=== PATIENT | male | born 1950 | race Caucasian/White ===

== ENCOUNTER 2017-02-06 11:11 | Outpatient (CLI) | payer OTHER | END 2017-02-06 11:12 | disposition home or self-care (01) | DX: E78.5 Hyperlipidemia, unspecified (principal); Z12.5 Encounter for screening for malignant neoplasm of prostate ==

== ENCOUNTER 2017-03-05 15:39 | Outpatient (CLI) | payer MEDICARE, OTHER | END 2017-03-05 15:40 | disposition home or self-care (01) | DX: G47.33 Obstructive sleep apnea (adult) (pediatric) (principal) | CPT/HCPCS: 99214; G0463 ==

== ENCOUNTER 2018-06-09 15:41 | Outpatient (CLI) | payer MEDICARE, OTHER | END 2018-06-09 15:42 | disposition home or self-care (01) | LOC: SC 15:41 | PROVIDERS: ATTEND Nurse Practitioner Family | DX: G47.33 Obstructive sleep apnea (adult) (pediatric) (principal) | CPT/HCPCS: 99213; G0463; 99212 ==

== ENCOUNTER 2018-08-26 07:21 | Outpatient (CLI) | payer MEDICARE, OTHER ==
[2018-08-26 13:20] LABS: BASOPHILS % (AUTO) 0.4 %; EOSINOPHILS # (AUTO) 0.3 10^3/uL (0.0-0.7); EOSINOPHILS % (AUTO) 5.8 %; HGB - HEMOGLOBIN 14.2 g/dL (14.0-18.0); LYMPHOCYTES # (AUTO) 1.8 10^3/uL (1.5-3.5); LYMPHOCYTES % (AUTO) 37.3 %; MEAN CORPUSCULAR HEMOGLOBIN 33.7 pg (27.0-31.0); MEAN CORPUSCULAR HGB CONC 34.9 g/dL (32.0-36.0); MEAN CORPUSCULAR VOLUME 96.5 fL (80.0-94.0); MEAN PLATELET VOLUME 8.2 fL (7.4-11.4); MONOCYTES # (AUTO) 0.5 10^3/uL (0.0-1.0); MONOCYTES % (AUTO) 10.4 %; NEUTROPHILS # (AUTO) 2.2 10^3/uL (1.5-6.6); NEUTROPHILS % (AUTO) 46.1 %; PLT - PLATELET COUNT 261 10^3/uL (130-450); RED BLOOD COUNT 4.22 10^6/uL (4.70-6.10); RED CELL DISTRIBUTION WIDTH 12.6 % (12.0-15.0); WHITE BLOOD COUNT 4.8 x10^3/uL (4.8-10.8)
[2018-08-26 13:33] LABS: ALBUMIN/GLOBULIN RATIO 1.3 (1.0-2.2); ALKALINE PHOSPHATASE 105 IU/L (42-121); ALT ALANINE AMINOTRANSFERASE 24 IU/L (10-60); AST ASPARTATE AMINOTRANSFERASE 23 IU/L (10-42); BILIRUBIN,TOTAL 1.2 mg/dL (0.2-1.0); BUN - BLOOD UREA NITROGEN 16 mg/dL (6-20); CALCIUM 9.3 mg/dL (8.5-10.3); CARBON DIOXIDE - CO2 29 mmol/L (21-32); CHLORIDE 100 mmol/L (101-111); CHOL/HDL RATIO 3.9 (<5.0); CHOLESTEROL 206 mg/dL; CREATININE 1.1 mg/dL (0.6-1.2); GFR - MDRD 67 (>89); GLUCOSE 176 mg/dL (70-100); HDL CHOLESTEROL 53 mg/dL; LDL CHOLESTEROL,CALCULATED 130 mg/dL; LDL/HDL RATIO 2.5 (<3.6); SODIUM 137 mmol/L (135-145); VLDL CHOLESTEROL 23 mg/dL
[2018-08-26 13:45] LABS: HEMOGLOBIN A1C 0.74 g/dL; HEMOGLOBIN A1C % 6.7 % (4.6-6.2)
== END 2018-08-26 07:22 | disposition home or self-care (01) ==
LOC: LAB.WCP 07:21
PROVIDERS: ATTEND Physician Assistant Medical
DX: E78.5 Hyperlipidemia, unspecified (principal); E11.9 Type 2 diabetes mellitus without complications; Z12.5 Encounter for screening for malignant neoplasm of prostate; L40.9 Psoriasis, unspecified
CPT/HCPCS: 36415; 80053; 80061; 83036; 85025; G0103; 83721; 84153

== ENCOUNTER 2019-04-22 07:43 | Outpatient (CLI) | payer MEDICARE, OTHER ==
[2019-04-22 13:40] LABS: ALBUMIN 4.1 g/dL (3.2-5.5); ALBUMIN/GLOBULIN RATIO 1.5 (1.0-2.2); BILIRUBIN,TOTAL 0.8 mg/dL (0.2-1.0); CALCIUM 9.3 mg/dL (8.5-10.3); CREATININE 0.9 mg/dL (0.6-1.2); TOTAL PROTEIN 6.9 g/dL (6.7-8.2)
[2019-04-22 14:30] LABS: HB2 TOTAL 15.6 g/dL; HEMOGLOBIN A1C 0.73 g/dL; HEMOGLOBIN A1C % 6.4 % (4.6-6.2)
== END 2019-04-22 07:44 | disposition home or self-care (01) ==
LOC: LAB.WCP 07:43
PROVIDERS: ATTEND Family Medicine
DX: Z00.00 Encounter for general adult medical examination without abnormal findings (principal); E78.5 Hyperlipidemia, unspecified; E11.9 Type 2 diabetes mellitus without complications; D12.6 Benign neoplasm of colon, unspecified
CPT/HCPCS: 36415; 80053; 82043; 83036

== ENCOUNTER 2019-06-14 15:58 | Outpatient (CLI) | payer MEDICARE, OTHER | END 2019-06-14 15:59 | disposition home or self-care (01) | LOC: SC 15:58 | PROVIDERS: ATTEND Nurse Practitioner Family | DX: G47.33 Obstructive sleep apnea (adult) (pediatric) (principal) | CPT/HCPCS: 99214; G0463; 99212 ==

== ENCOUNTER 2021-04-20 08:04 | Outpatient (CLI) | payer MEDICARE, OTHER ==
--- NOTE | 2021-04-20 08:29 | SLEEP CARE CONSULTATION ---
Information from patient questionnaire entered by Kelly Bojorquez. I have reviewed and concur with the information entered by Kelly Bojorquez. This document represents the service I personally performed and the decisions made by , Patricia Beauchamp ARNP. History of Present Illness Service Date and Time: 04/20/2021 0804 Previous diagnosis: Moderate, Obstructive Sleep Apnea-Hypopnea Syndrome AHI: 26.8 (in 2013) Reason for follow up: annual (last seen 05/2019) Equipment type: CPAP Equipment obtained from: [employer] (getting supplies as needed) Mask style: Full face Backup mask available: Yes (old mask) Last cushion change: 1 month Prior sleep studies: Yes Year and Where: 2013 - [facility] HPI additional information: GINGER ALCANTAR was diagnosed to have moderate, AHI 26.8, obstructive sleep apnea- hypopnea syndrome and returned today for CPAP therapy annual follow-up. CPAP Compliance Data - Data Reviewed with Patient Average duration of nightly device use: 8 hr 9 min Compliance rate %: 93.9 (180 days) Current pressure setting (cmH2O): 6-8 Humidity settin Heated hose settin Average residual AHI: 2.3 Central apnea: 0.0 Obstructive apnea: 0.3 Hypopnea: 2.0 Average large leak: 36 sec Subjective Patient concerns: denies: aerophagia, mask discomfort, air blowing in eyes, mask leak noise, condensation in mask/hose, nasal congestion, dry mouth, nose, throat, epistaxis, other Observed to snore while using device: No Current pressure setting perceived as: comfortable On therapy, patient: reports: sleeping better, awakening more refreshed, being more awake and alert during the day, more rested overall. denies: drowsiness while driving Initial [place] Sleepiness Scale score: 3 (in 2013) Current [place] Sleepiness Scale score: 1 Allergies and Home Medications Home medication list reviewed: Yes (Metformin, atorvastatin) Review of Systems Review of systems same as previous: Yes (no changes) Physical Exam Heart Rate: 52 O2 Saturation: 97 Height: 5 ft 10 in Weight: 221 lb Body Mass Index: 31.7 BMI Classification: Obese Impression and Plan 1. Obstructive Sleep Apnea-Hypopnea Syndrome, moderate, with good treatment compliance and good apnea control. On CPAP therapy, the patient has better sleep quality and is more rested overall. He states he is committed to using his CPAP. He has significant improvement of his apnea and is satisfied with his treatment. He has not concerns or issues today. He was encouraged to try to lose weight. I will have him follow up next year. Patient's apnea severity and rationale for treatment to reduce apnea, improve sleep quality and reduce cardiovascular and cerebrovascular events was reviewed. I also reviewed the benefit of consistent device use of CPAP for diabetes. * Continue auto CPAP pressure at 6-8 cmH2O * Notify me if snoring with mask or feeling that the pressure is too much or too little * Attempt to lose weight * Call this office if any problems using CPAP * Return for follow up in 1 year, or sooner if concerns arise Counseling Topics: Spare mask, Weight loss health impact Visit Type: In Office Time Spent with Patient (minutes): 13 Provider Statement: I spent 100% of the Face to Face Visit with the patient with greater than 50% spent counseling the patient and coordination of care.
== END 2021-04-20 08:05 | disposition home or self-care (01) ==
LOC: SC 08:04
PROVIDERS: ATTEND Nurse Practitioner Family
DX: G47.33 Obstructive sleep apnea (adult) (pediatric) (principal); E66.9 Obesity, unspecified; Z68.31 Body mass index [BMI] 31.0-31.9, adult
CPT/HCPCS: 99212; G0463

== ENCOUNTER 2022-06-28 15:03 | Outpatient (CLI) | payer MEDICARE, OTHER ==
[2022-06-28 15:37] VITALS: BP 111/75
--- NOTE | 2022-06-28 15:37 | SLEEP CARE CONSULTATION ---
Information from patient questionnaire entered by Donna Paul MA. I have reviewed and concur with the information entered by Donna Paul MA. This document represents the service I personally performed and the decisions made by , Patricia Beauchamp ARNP. History of Present Illness Service Date and Time: 06/28/2022 1503 Previous diagnosis: Moderate, Obstructive Sleep Apnea-Hypopnea Syndrome AHI: 26.8 (in 2013) Reason for follow up: annual (LAST SEEN 03/2021, LUANA, ARANGO 10/26/2014, ) Equipment type: CPAP Equipment obtained from: [employer] (getting supplies as needed) Mask style: Full face Backup mask available: Yes (old mask) Last cushion change: 1 month Prior sleep studies: Yes Year and Where: 2013 - [facility] HPI additional information: GINGER ALCANTAR was diagnosed to have moderate, AHI 26.8, obstructive sleep apnea- hypopnea syndrome and returned today for CPAP therapy annual follow-up. Sleep Study - Results Prior sleep studies: Yes Year and Where: 2013 - [facility] CPAP Compliance Data Compliance data discussion: Patient's machine was last updated 2013, it is a REMstar Auto. It is no longer sending compliance information. The last compliance information was for 90 days, 01/20/21-04/19/21 with 95.6% compliance, 86/90 days used, pressure set at 6-8 cmH2O and residual 2.3. Subjective Missed days of use due to: reports: other (fall asleep without it) Patient concerns: reports: dry mouth, nose, throat (more recent). denies: aerophagia, mask discomfort, air blowing in eyes, mask leak noise, condensation in mask/hose, nasal congestion, epistaxis, other Observed to snore while using device: No Current pressure setting perceived as: comfortable On therapy, patient: reports: sleeping better, awakening more refreshed, being more awake and alert during the day, more rested overall. denies: drowsiness while driving Initial [address] Sleepiness Scale score: 3 (in 2013) Current [address] Sleepiness Scale score: 1 (06/28/2022) Allergies and Home Medications Known drug allergies: No Drug allergies reviewed: Yes Home medication list reviewed: Yes Allergy and home medication list: Medications: METFORMIN 500 mg OD Atorvastatin Ibuprofen/Tylenol, prn Review of Systems Review of systems same as previous: No (Right wrist fracture) Physical Exam Vital signs obtained and entered by: LIBRA DURON Blood Pressure: 111/75 (RIGHT, PULSE 66, RESP 18) Cuff size: wrist Heart Rate: 68 O2 Saturation: 98 (PAPER MASK) Height: 5 ft 10 in Weight: 198 lb (CLOTHES) Body Mass Index: 28.4 BMI Classification: Overweight Impression and Plan 1. Obstructive Sleep Apnea-Hypopnea Syndrome, moderate, with good treatment compliance and good apnea control. On CPAP therapy, the patient has better sleep quality and is more rested overall. Patient's machine has stopped communicating because of his age through the modem. We were unable to obtain any information from his SD card either because of its age. His last available compliance data shows good compliance and apnea control. Patient has a REMstar CPAP by [employer] and is on the recall. He has registered the device but has not heard anything and is ready to update his machine. The patients CPAP is over 5 years old and of reasonable use. Thus, the CPAP will be updated. A DWO prescription will be made. Compliance guidelines for new device and follow up discussed. Patient's apnea severity and rationale for treatment to reduce apnea, improve sleep quality and reduce cardiovascular and cerebrovascular events was reviewed. I also reviewed the benefit of consistent device use of CPAP for diabetes. * Continue auto CPAP pressure at 6-8 cmH2O * Update CPAP machine * Update supplies * Notify me if snoring with mask or feeling that the pressure is too much or too little * Call this office if any problems using CPAP * Return for follow up one month after obtaining new device, or sooner if concerns arise Counseling Topics: Spare mask, Weight loss health impact Visit Type: In Office Time Spent with Patient (minutes): 21 Provider Statement: I spent 100% of the Face to Face Visit with the patient with greater than 50% spent counseling the patient and coordination of care.
== END 2022-06-28 15:04 | disposition home or self-care (01) ==
LOC: SC 15:03
PROVIDERS: ATTEND Nurse Practitioner Family
DX: G47.33 Obstructive sleep apnea (adult) (pediatric) (principal); E66.3 Overweight; Z68.28 Body mass index [BMI] 28.0-28.9, adult
CPT/HCPCS: 99213; G0463; 99212